=== PATIENT | male | born 1985 | race Caucasian/White ===

== ENCOUNTER 2017-11-14 10:59 | Emergency (ER) | payer MEDICAID ==
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
[2017-11-14 11:32] LABS: PLATELET COUNT 305 10^3/uL (150-400)
[2017-11-14] MEDS ORDERED: IOPAMIDOL (ISOVUE-300) 100 ML BTL ONE (11:36)
[2017-11-14] MEDS ORDERED: cefOXitin SODIUM 2 GM in NS 100 ML IV ONE (12:26)
--- NOTE | 2017-11-14 13:20 | ASMTCMCOM ---
CM Note CM Note Notes: Chart reviewed and met with patient to evaluate for motivation and resources related to admitted substance abuse. Patient is originally from [place] and has been living in the [facility] area for about 5 years. 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 He is current with [place] Medicaid, but denies being seen at a clinic or other health care provider. He is transient and has not been staying at any shelters. I spoke with patient about detox and treatment programs in the [place] and [facility], as well as the retirement and the process of coordinated entry. I have provided him resources for this as well as information and contact for [facility] and [facility]. Patient states that he does want to stop using drugs. I have encouraged him to follow up with the resources provided, potentailly starting with [facility]drawal [facility] ([facility]) once he has been discharged from the hospital. Date Signed: 11/14/2017 01:19 PM Electronically Signed By:Leana Harvey RN
[2017-11-14 14:30] VITALS: BP 138/65
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
== END 2017-11-14 14:30 | disposition home or self-care (01) ==
PROC: 0C9400Z Drainage of Buccal Mucosa with Drainage Device, Open Approach (ICD-10-PCS; principal; 2017-11-14)
DX: K12.2 Cellulitis and abscess of mouth (principal); Y04.2XXA Assault by strike against or bumped into by another person, initial encounter; F11.10 Opioid abuse, uncomplicated
CPT/HCPCS: 82435-PO; 82565-PO; 82947-PO; 84132-PO; 84295-PO; 84520-PO; 85014-PO; J0694; Q9967